=== PATIENT | male | born 1985 | race Caucasian/White ===

== ENCOUNTER 2018-08-15 08:04 | Inpatient (IN) | payer OTHER ==
[~2018-08-15] VITALS: Ht 185.4 cm; Wt 138.3 kg
[~2018-08-15 08:04] MED LIST: AVAPRO150 MG; FORTAMET1000 MG; LIPITOR20 MG; VITAMIN D31000 UNI1
== END 2018-08-21 14:52 | disposition home or self-care (01) | DRG 348 ==
LOC: ER 08:04 → SEC-K 12:31 → SURH 12:31
PROVIDERS: Colon & Rectal Surgery
PROC: BW3GZZZ Magnetic Resonance Imaging (MRI) of Pelvic Region (ICD-10-PCS; 2018-08-15)
PROC: 0J9B3ZX Drainage of Perineum Subcutaneous Tissue and Fascia, Percutaneous Approach, Diagnostic (ICD-10-PCS; 2018-08-19)
PROC: 0DBQ3ZZ Excision of Anus, Percutaneous Approach (ICD-10-PCS; principal; 2018-08-19 05:00)
DX: K61.0 Anal abscess (principal); B37.89 Other sites of candidiasis; E11.65 Type 2 diabetes mellitus with hyperglycemia; I10 Essential (primary) hypertension; E66.8 Other obesity; B96.1 Klebsiella pneumoniae [K. pneumoniae] as the cause of diseases classified elsewhere; B95.2 Enterococcus as the cause of diseases classified elsewhere
CPT/HCPCS: 72195

== ENCOUNTER 2019-05-14 09:49 | Inpatient (IN) | payer OTHER ==
[~2019-05-14] VITALS: Ht 185.4 cm; Wt 138.3 kg
[2019-05-14] MEDS ORDERED: VITAMIN C500 M6 (10:11)
[2019-05-14] MEDS ORDERED: COZAAR100 MG (10:11)
== END 2019-05-16 09:34 | disposition home or self-care (01) | DRG 989 ==
LOC: ER 09:49 → SURH 22:59 → SURG 22:59 → SURH 05-15 00:04
PROVIDERS: ADMIT Colon & Rectal Surgery
PROC: 0J9B0ZZ Drainage of Perineum Subcutaneous Tissue and Fascia, Open Approach (ICD-10-PCS; principal; 2019-05-15 16:00)
DX: K61.39 Other ischiorectal abscess (principal); E66.8 Other obesity; E11.9 Type 2 diabetes mellitus without complications; E78.49 Other hyperlipidemia; I10 Essential (primary) hypertension; Z88.0 Allergy status to penicillin